=== PATIENT | female | born 1960 | race American Indian/Alaskan Native ===

== ENCOUNTER 2016-06-16 15:04 | Emergency (ER) | payer SELFPAY ==
[2016-06-16 15:24] VITALS: BP 155/89
[2016-06-16] MEDS ORDERED: MOTRIN PO ONE (17:30)
--- NOTE | 2016-06-16 17:48 | Emergency Department Report ---
HPI - General Chief Complaint: Upper Respiratory Infection - HPI HPI: 55-year-old -[place] female with a past medical history of hypertension comes in for complaint of flulike symptoms for the last 3 days. Patient reports she is taking [id number] medication without much relief. She admits to sweats abdominal pain from coughing so much cough and body aches. She is currently on lisinopril/hydrochlorothiazide as well as amlodipine 10 mg. She has no known allergies ED Past Medical Hx - Past Medical History Previous Medical History?: Yes Hx Hypertension: Yes - Surgical History Past Surgical History?: Yes Additional Surgical History: Tubaligation - Social History Smoking Status: Current Every Day Smoker Substance Use Type: Alcohol, Non Opiate Pain - Medications Home Medications: Home Medications Medication Instructions Recorded Confirmed Last Taken Type methOCARBAMOL [Robaxin TAB] 500 mg PO BID #10 tab 03/07/15 Unknown Rx traMADol [Ultram] 50 mg PO Q6HR PRN #14 tablet 03/07/15 Unknown Rx Cetirizine HCl [ZyrTEC] 10 mg PO QDAY #30 capsule 06/16/16 Unknown Rx Fluticasone [Flonase] 1 spray NS QDAY #1 bottle 06/16/16 Unknown Rx Ibuprofen [Motrin 800 MG tab] 800 mg PO Q8HR PRN #30 tablet 06/16/16 Unknown Rx ED Review of Systems ROS: Stated complaint: FLU SX /BODY ACHES Other details as noted in HPI Constitutional: denies: chills, fever ENT: ear pain, throat pain, congestion (nasal and chest congestion) Respiratory: cough Endocrine: excessive sweating Gastrointestinal: denies: abdominal pain, nausea, diarrhea Physical Exam - Physical Exam Vital Signs: Vital Signs 06/16/16 15:20 Temperature 99 F Pulse Rate 96 H Respiratory 20 Rate Blood Pressure 155/89 O2 Sat by Pulse 100 Oximetry Physical Exam: GENERAL: Alert and oriented x3, no apparent distress, Normal Gait, atraumatic. HEAD: Head is normocephalic and a-traumatic. EYES: Extra ocular muscles are intact. Pupils are equal, round, and reactive to light and accommodation. EARS: symetrical, atraumatic, non tender, ear canal clear and moderate cerumen, tympanic membrance non inflamed. gross auditory nml bilaterally. NOSE: Nose symetrical, Nontender,Nares appeared normal. Exudate noticed in the nares MOUTH:Mouth is well hydrated and without lesions. Tonsils nonerythematous or swollen, Uvula midline, Tongue not elevated. Mucous membranes are moist. Posterior pharynx clear, no exudate or lesions. Patent airways. NECK: Supple. Non edematous, No carotid bruits. No lymphadenopathy or thyromegaly. LUNGS: Symetrical with respiration, No wheezing, no rales or crackles, CTAB. HEART: S1, S2 present, regular rate and rhythm without murmur, no rubs, no gallops. NEUROLOGIC: No focal Deficit, Cranial nerves II through XII are grossly intact. No loss of sensation, No facial droop, PSYCHIATRIC: Mood is congruent with affect, SKIN: Warm and dry, No lesions, No ulceration or induration present ED Course Vital Signs 06/16/16 15:20 Temperature 99 F Pulse Rate 96 H Respiratory 20 Rate Blood Pressure 155/89 O2 Sat by Pulse 100 Oximetry ED Medical Decision Making - Medical Decision Making Patient's been evaluated by this provider fast track influenza test is sent out Tylenol for pain. Critical care attestation.: If time is entered above; I have spent that time in minutes in the direct care of this critically ill patient, excluding procedure time. ED Disposition Clinical Impression: Upper respiratory symptom Disposition: DISCHARGED TO HOME OR SELFCARE Is pt being admited?: No Does the pt Need Aspirin: No Condition: Stable Instructions: Upper Respiratory Infection (ED), Cold Symptoms (ED) Additional Instructions: Your flu test was negative. Please take the ibuprofen as prescribed. Take the Zyrtec as prescribed and use of Flonase as prescribed. If symptoms does not improve or get worse please follow up with her primary care doctor Prescriptions: Cetirizine HCl [ZyrTEC] 10 mg PO QDAY #30 capsule Fluticasone [Flonase] 1 spray NS QDAY #1 bottle Ibuprofen [Motrin 800 MG tab] 800 mg PO Q8HR PRN #30 tablet PRN Reason: Pain Referrals: PRIMARY CARE,MD [Primary Care Provider] - 3-5 Days Forms: Work/School Release Form(ED)
== END 2016-06-16 18:29 | disposition home or self-care (01) ==
LOC: ED 15:04
DX: R05 Cough (principal); R10.9 Unspecified abdominal pain; R61 Generalized hyperhidrosis; R09.81 Nasal congestion; I10 Essential (primary) hypertension; F17.200 Nicotine dependence, unspecified, uncomplicated; Z98.51 Tubal ligation status; Z79.899 Other long term (current) drug therapy
CPT/HCPCS: 87400; 99282

== ENCOUNTER 2016-12-29 13:56 | Emergency (ER) | payer SELFPAY ==
--- NOTE | 2016-12-29 14:08 | Emergency Department Report ---
Stated Complaint: HEADACHE AND SWEATING Time Seen by Provider: 12/29/16 14:06 - HPI History of Present Illness: PT c/o L thumb pain x 1 week. PT states all of her fingers hurt and burn. PT tearful. PT states she was told by friend that she had a stroke. - ROS Review of Systems: + headache + arthragia - Exam Physical Exam: PT is alert no focal weakness normal finger to nose gcs 15 PT tearful MSE screening note: Focused history and physical exam performed. Due to findings the following was ordered: labs, xr ED Disposition for MSE Condition: Stable
[2016-12-29 14:09] VITALS: BP 204/90
[2016-12-29 14:28] LABS: Basophils % (Auto) 0.9 % (0.0-1.8); Eosinophils % (Auto) 0.6 % (0.0-4.3); Hematocrit 43.9 % (30.3-42.9); Mean Corpuscular HGB Conc 32 % (30-34); Mean Corpuscular Volume 76 fl (79-97); Platelet Count 206 K/mm3 (140-440)
[2016-12-29 14:32] LABS: Mean Corpuscular Hemoglobin 24 pg (28-32)
[2016-12-29 14:40] LABS: Anion Gap 19 mmol/L; Blood Urea Nitrogen 10 mg/dL (7-17); Calcium 9.4 mg/dL (8.4-10.2); Carbon Dioxide 24 mmol/L (22-30); Chloride 100.5 mmol/L (98-107); Glucose 84 mg/dL (65-100); Potassium 4.1 mmol/L (3.6-5.0); Sodium 139 mmol/L (137-145)
--- NOTE | 2016-12-29 14:49 | XRay Report ---
LEFT HAND, 3 views: History: Pain. The bony architecture is intact. Bony alignment is normal. No soft tissue abnormalities are seen. The joint spaces appear preserved. IMPRESSION: Unremarkable left hand.
--- NOTE | 2016-12-29 18:46 | Emergency Department Report ---
ED General Adult HPI - General Chief complaint: Extremity Injury, Upper Stated complaint: HEADACHE AND SWEATING Time Seen by Provider: 12/29/16 14:06 Source: patient Mode of arrival: Ambulatory Limitations: No Limitations - History of Present Illness Initial comments: 56 years old female coming today with chief complaint of sweating all over pain in her hands being alone for 7 days on and off her pain is mainly in the left thumb now. Patient denied any weakness numbness or tingling sensation. - Related Data Previous Rx's Medication Instructions Recorded Last Taken Type methOCARBAMOL [Robaxin TAB] 500 mg PO BID #10 tab 03/07/15 Unknown Rx traMADol [Ultram] 50 mg PO Q6HR PRN #14 tablet 03/07/15 Unknown Rx Cetirizine HCl [ZyrTEC] 10 mg PO QDAY #30 capsule 06/16/16 Unknown Rx Fluticasone [Flonase] 1 spray NS QDAY #1 bottle 06/16/16 Unknown Rx Ibuprofen [Motrin 800 MG tab] 800 mg PO Q8HR PRN #30 tablet 06/16/16 Unknown Rx Naproxen [Naprosyn] 500 mg PO BID #14 tablet 12/29/16 Unknown Rx Allergies Allergy/AdvReac Type Severity Reaction Status Date / Time No Known Allergies Allergy Unverified 06/16/16 15:19 ED Review of Systems ROS: Stated complaint: HEADACHE AND SWEATING Other details as noted in HPI Comment: All other systems reviewed and negative Constitutional: chills, fever ENT: throat pain, congestion Respiratory: denies: cough Cardiovascular: denies: chest pain Gastrointestinal: denies: nausea, vomiting ED Past Medical Hx - Past Medical History Previous Medical History?: Yes Hx Hypertension: Yes - Surgical History Past Surgical History?: Yes Additional Surgical History: Tubaligation - Social History Smoking Status: Current Every Day Smoker Substance Use Type: None - Medications Home Medications: Home Medications Medication Instructions Recorded Confirmed Last Taken Type methOCARBAMOL [Robaxin TAB] 500 mg PO BID #10 tab 03/07/15 Unknown Rx traMADol [Ultram] 50 mg PO Q6HR PRN #14 tablet 03/07/15 Unknown Rx Cetirizine HCl [ZyrTEC] 10 mg PO QDAY #30 capsule 06/16/16 Unknown Rx Fluticasone [Flonase] 1 spray NS QDAY #1 bottle 06/16/16 Unknown Rx Ibuprofen [Motrin 800 MG tab] 800 mg PO Q8HR PRN #30 tablet 06/16/16 Unknown Rx Naproxen [Naprosyn] 500 mg PO BID #14 tablet 12/29/16 Unknown Rx ED Physical Exam - General Limitations: No Limitations General appearance: alert, in no apparent distress - Head Head exam: Present: atraumatic - Eye Eye exam: Present: normal appearance - Neck Neck exam: Present: normal inspection. Absent: tenderness, meningismus, full ROM, lymphadenopathy - Respiratory Respiratory exam: Present: normal lung sounds bilaterally. Absent: respiratory distress, wheezes, rales - Cardiovascular Cardiovascular Exam: Present: regular rate, normal rhythm, normal heart sounds - Extremities Exam Extremities exam: Present: other (bilateral hands exam are normal) - Back Exam Back exam: Present: normal inspection - Neurological Exam Neurological exam: Present: alert, oriented X3, CN II-XII intact - Skin Skin exam: Present: warm, intact ED Course Vital Signs 12/29/16 14:06 Temperature 98.2 F Pulse Rate 77 Respiratory 16 Rate Blood Pressure 204/90 O2 Sat by Pulse 100 Oximetry ED Medical Decision Making - Lab Data Result diagrams: 12/29/16 14:13 12/29/16 14:13 Critical care attestation.: If time is entered above; I have spent that time in minutes in the direct care of this critically ill patient, excluding procedure time. ED Disposition Clinical Impression: Generalized pain, Arthritis Disposition: DC-01 TO HOME OR SELFCARE Is pt being admited?: No Condition: Stable Instructions: Osteoarthritis (ED) Referrals: PRIMARY CARE, [Primary Care Provider] - 3-5 Days
== END 2016-12-29 19:11 | disposition home or self-care (01) ==
LOC: ED 13:56
DX: M19.90 Unspecified osteoarthritis, unspecified site (principal); R52 Pain, unspecified; I10 Essential (primary) hypertension; F17.200 Nicotine dependence, unspecified, uncomplicated
CPT/HCPCS: 36415; 80048; 85025; 99283

== ENCOUNTER 2017-09-12 03:38 | Emergency (ER) | payer SELFPAY ==
[2017-09-12 04:36] LABS: Basophils # (Auto) 0.1 K/mm3 (0.0-0.1); Basophils % (Auto) 0.9 % (0.0-1.8); Eosinophils # (Auto) 0.2 K/mm3 (0.0-0.4); Lymphocytes # (Auto) 3.6 K/mm3 (1.2-5.4); Lymphocytes % (Auto) 41.4 % (13.4-35.0); Mean Corpuscular HGB Conc 33 % (30-34); Mean Corpuscular Volume 75 fl (79-97); Monocytes # (Auto) 0.6 K/mm3 (0.0-0.8); Monocytes % (Auto) 6.7 % (0.0-7.3); Platelet Count 238 K/mm3 (140-440); Red Cell Distribution Width 15.5 % (13.2-15.2)
[2017-09-12 04:38] LABS: Mean Corpuscular Hemoglobin 25 pg (28-32)
[2017-09-12 04:52] LABS: BUN/Creatinine Ratio 17; Blood Urea Nitrogen 15 mg/dL (7-17); Calcium 9.9 mg/dL (8.4-10.2); Hemolysis Index 10
[2017-09-12 05:54] LABS: Bilirubin,Urine NEG (Negative); Blood,Urine NEG (Negative); Color,Urine Yellow (Yellow); Mucus,Urine FEW /HPF; Protein,Urine <15 mg/dL mg/dL (Negative)
[2017-09-12 06:01] LABS: Amphetamine Screen,Urine PRESUMPTIVE NEGATIVE; Benzodiazepines Screen,Urine PRESUMPTIVE NEGATIVE; Cocaine Screen,Urine PRESUMPTIVE NEGATIVE; Methadone Screen,Urine PRESUMPTIVE NEGATIVE; Opiate Screen,Urine PRESUMPTIVE NEGATIVE
[2017-09-12 06:15] LABS: Cannabinoid Screen,Urine PRESUMPTIVE POSITIVE
[2017-09-12] MEDS ORDERED: TYLENOL PO PRN (07:07)
[2017-09-12] MEDS ORDERED: ZOFRAN ODT PO PRN (07:07)
--- NOTE | 2017-09-12 07:07 | Emergency Department Report ---
ED Psych HPI - General Chief Complaint: Psych Stated Complaint: NH Time Seen by Provider: 09/12/17 06:57 Source: patient, RN notes reviewed Mode of arrival: Ambulatory Limitations: No Limitations - History of Present Illness Initial Comments: This is a 57-year-old female who presents to the ER with a complaint of suicidality. She wants to shoot herself. Her symptoms are constant. They're painless. She cannot describe exacerbating or relieving factors to me. She endorses multiple life stressors. To me, she denies headache, neck pain, chest pain, abdominal pain, shortness of breath, urinary symptoms. She denies intentional overdose. She cannot contract for safety. She denies hallucinations to this provider. She complains of chronic muscular arthritic pain in her bilateral ankles which is achy, intermittent, does not radiate anywhere. MD Complaint: suicidal ideation, feels depressed -: Gradual Associated Psychiatric Symptoms: suicidal ideation Quality: constant Improves With: other (per hpi) Worsens With: other (per hpi) Context: significant life stressor, other (per hpi) Associated Symptoms: denies other symptoms. denies: confusion, headache, shortness of breath, nausea, vomiting, syncope, insomnia If Self Harm: admits thoughts of, has plan - Related Data Home Medications Medication Instructions Recorded Confirmed Last Taken Amlodipine Besylate [Norvasc] 10 mg PO DAILY 09/12/17 09/12/17 Unknown Lisinopril [Prinivil] 10 mg PO DAILY 09/12/17 09/12/17 Unknown Allergies Allergy/AdvReac Type Severity Reaction Status Date / Time No Known Allergies Allergy Unverified 06/16/16 15:19 ED Review of Systems ROS: Stated complaint: NH Other details as noted in HPI Comment: All other systems reviewed and negative ED Past Medical Hx - Past Medical History Previous Medical History?: Yes Hx Hypertension: Yes - Surgical History Past Surgical History?: Yes Additional Surgical History: Tubaligation - Social History Smoking Status: Current Every Day Smoker Substance Use Type: None - Medications Home Medications: Home Medications Medication Instructions Recorded Confirmed Last Taken Type Amlodipine Besylate [Norvasc] 10 mg PO DAILY 09/12/17 09/12/17 Unknown History Lisinopril [Prinivil] 10 mg PO DAILY 09/12/17 09/12/17 Unknown History ED Physical Exam - General Limitations: No Limitations General appearance: alert, in no apparent distress - Head Head exam: Present: atraumatic, normocephalic - Eye Eye exam: Present: normal appearance, EOMI. Absent: nystagmus - ENT ENT exam: Present: normal exam, normal orophraynx, mucous membranes moist, normal external ear exam - Neck Neck exam: Present: normal inspection, full ROM. Absent: tenderness, meningismus - Respiratory Respiratory exam: Present: normal lung sounds bilaterally. Absent: respiratory distress - Cardiovascular Cardiovascular Exam: Present: regular rate, normal rhythm, normal heart sounds. Absent: bradycardia, tachycardia, irregular rhythm, systolic murmur, diastolic murmur, rubs, gallop - GI/Abdominal GI/Abdominal exam: Present: soft, normal bowel sounds. Absent: distended, tenderness, guarding, rebound, rigid, pulsatile mass - Extremities Exam Extremities exam: Present: normal inspection, full ROM, normal capillary refill , other (the compartments are soft. There is no palpable cord. 2+ pulses noted in the upper, lower extremities, there is no redness, pus or streaking. The pelvis is stable. There is no long bony tenderness.). Absent: pedal edema , joint swelling, calf tenderness - Back Exam Back exam: Present: normal inspection, full ROM. Absent: tenderness, CVA tenderness (R), paraspinal tenderness, vertebral tenderness - Neurological Exam Neurological exam: Present: alert, oriented X3, CN II-XII intact, normal gait, other (Extraocular movements intact. Tongue midline. No facial droop. Facial sensation intact to light touch in the V1, V2, V3 distribution bilaterally. 5 and 5 strength in 4 extremities.. Sensation is intact to light touch in 4 extremities.). Absent: motor sensory deficit - Psychiatric Psychiatric exam: Present: suicidal ideation - Skin Skin exam: Present: warm, dry, intact, normal color. Absent: rash ED Course Vital Signs 09/12/17 09/12/17 09/12/17 03:56 05:46 06:07 Temperature 98.0 F 98.0 F Pulse Rate 89 77 Respiratory 20 20 20 Rate Blood Pressure 190/103 Blood Pressure 129/70 [Left] O2 Sat by Pulse 97 99 100 Oximetry ED Medical Decision Making - Lab Data Result diagrams: 09/12/17 04:14 09/12/17 04:14 Vital Signs 09/12/17 09/12/17 09/12/17 03:56 05:46 06:07 Temperature 98.0 F 98.0 F Pulse Rate 89 77 Respiratory 20 20 20 Rate Blood Pressure 190/103 Blood Pressure 129/70 [Left] O2 Sat by Pulse 97 99 100 Oximetry Lab Results 09/12/17 09/12/17 09/12/17 Range/Units 04:14 04:14 04:14 WBC (4.5-11.0) K/mm3 RBC (3.65-5.03) M/mm3 Hgb (10.1-14.3) gm/dl Hct (30.3-42.9) % MCV (79-97) fl MCH (28-32) pg MCHC (30-34) % RDW (13.2-15.2) % Plt Count (140-440) K/mm3 Lymph % (Auto) (13.4-35.0) % [place] % (Auto) (0.0-7.3) % Eos % (Auto) (0.0-4.3) % Baso % (Auto) (0.0-1.8) % Lymph # (1.2-5.4) K/mm3 [place] # (0.0-0.8) K/mm3 Eos # (0.0-0.4) K/mm3 Baso # (0.0-0.1) K/mm3 Seg Neutrophils % (40.0-70.0) % Seg Neutrophils # (1.8-7.7) K/mm3 Sodium 144 (137-145) mmol/L Potassium 3.7 (3.6-5.0) mmol/L Chloride 103.5 (98-107) mmol/L Carbon Dioxide 25 (22-30) mmol/L Anion Gap 19 mmol/L BUN 15 (7-17) mg/dL Creatinine 0.9 (0.7-1.2) mg/dL Estimated GFR > 60 ml/min BUN/Creatinine Ratio 17 % Glucose 113 H (65-100) mg/dL Calcium 9.9 (8.4-10.2) mg/dL Urine Color (Yellow) Urine Turbidity (Clear) Urine pH (5.0-7.0) Ur Specific [place] (1.003-1.030) Urine Protein (Negative) mg/dL Urine Glucose (UA) (Negative) mg/dL Urine Ketones (Negative) mg/dL Urine Blood (Negative) Urine Nitrite (Negative) Urine Bilirubin (Negative) Urine Urobilinogen (<2.0) mg/dL Ur Leukocyte Esterase (Negative) Urine WBC (Auto) (0.0-6.0) /HPF Urine RBC (Auto) (0.0-6.0) /HPF U Epithel Cells (Auto) (0-13.0) /HPF Urine Mucus /HPF Salicylates < 0.3 L (2.8-20.0) mg/dL Urine Opiates Screen Urine Methadone Screen Acetaminophen < 5.0 L (10.0-30.0) ug/mL Ur Barbiturates Screen Ur Phencyclidine Scrn Ur Amphetamines Screen U Benzodiazepines Scrn Urine Cocaine Screen U Marijuana (THC) Screen Drugs of Abuse Note Plasma/Serum Alcohol (0-0.07) % 09/12/17 09/12/17 09/12/17 Range/Units 04:14 04:14 04:32 WBC 8.6 (4.5-11.0) K/mm3 RBC 5.70 H (3.65-5.03) M/mm3 Hgb 14.0 (10.1-14.3) gm/dl Hct 43.0 H (30.3-42.9) % MCV 75 L (79-97) fl MCH 25 L (28-32) pg MCHC 33 (30-34) % RDW 15.5 H (13.2-15.2) % Plt Count 238 (140-440) K/mm3 Lymph % (Auto) 41.4 H (13.4-35.0) % [place] % (Auto) 6.7 (0.0-7.3) % Eos % (Auto) 2.0 (0.0-4.3) % Baso % (Auto) 0.9 (0.0-1.8) % Lymph # 3.6 (1.2-5.4) K/mm3 [place] # 0.6 (0.0-0.8) K/mm3 Eos # 0.2 (0.0-0.4) K/mm3 Baso # 0.1 (0.0-0.1) K/mm3 Seg Neutrophils % 49.0 (40.0-70.0) % Seg Neutrophils # 4.2 (1.8-7.7) K/mm3 Sodium (137-145) mmol/L Potassium (3.6-5.0) mmol/L Chloride (98-107) mmol/L Carbon Dioxide (22-30) mmol/L Anion Gap mmol/L BUN (7-17) mg/dL Creatinine (0.7-1.2) mg/dL Estimated GFR ml/min BUN/Creatinine Ratio % Glucose (65-100) mg/dL Calcium (8.4-10.2) mg/dL Urine Color Yellow (Yellow) Urine Turbidity Clear (Clear) Urine pH 7.0 (5.0-7.0) Ur Specific [place] 1.024 (1.003-1.030) Urine Protein <15 mg/dl (Negative) mg/dL Urine Glucose (UA) Neg (Negative) mg/dL Urine Ketones Neg (Negative) mg/dL Urine Blood Neg (Negative) Urine Nitrite Neg (Negative) Urine Bilirubin Neg (Negative) Urine Urobilinogen 2.0 (<2.0) mg/dL Ur Leukocyte Esterase Neg (Negative) Urine WBC (Auto) 1.0 (0.0-6.0) /HPF Urine RBC (Auto) 3.0 (0.0-6.0) /HPF U Epithel Cells (Auto) 3.0 (0-13.0) /HPF Urine Mucus Few /HPF Salicylates (2.8-20.0) mg/dL Urine Opiates Screen Urine Methadone Screen Acetaminophen (10.0-30.0) ug/mL Ur Barbiturates Screen Ur Phencyclidine Scrn Ur Amphetamines Screen U Benzodiazepines Scrn Urine Cocaine Screen U Marijuana (THC) Screen Drugs of Abuse Note Plasma/Serum Alcohol < 0.01 (0-0.07) % 09/12/17 Range/Units 04:55 WBC (4.5-11.0) K/mm3 RBC (3.65-5.03) M/mm3 Hgb (10.1-14.3) gm/dl Hct (30.3-42.9) % MCV (79-97) fl MCH (28-32) pg MCHC (30-34) % RDW (13.2-15.2) % Plt Count (140-440) K/mm3 Lymph % (Auto) (13.4-35.0) % [place] % (Auto) (0.0-7.3) % Eos % (Auto) (0.0-4.3) % Baso % (Auto) (0.0-1.8) % Lymph # (1.2-5.4) K/mm3 [place] # (0.0-0.8) K/mm3 Eos # (0.0-0.4) K/mm3 Baso # (0.0-0.1) K/mm3 Seg Neutrophils % (40.0-70.0) % Seg Neutrophils # (1.8-7.7) K/mm3 Sodium (137-145) mmol/L Potassium (3.6-5.0) mmol/L Chloride (98-107) mmol/L Carbon Dioxide (22-30) mmol/L Anion Gap mmol/L BUN (7-17) mg/dL Creatinine (0.7-1.2) mg/dL Estimated GFR ml/min BUN/Creatinine Ratio % Glucose (65-100) mg/dL Calcium (8.4-10.2) mg/dL Urine Color (Yellow) Urine Turbidity (Clear) Urine pH (5.0-7.0) Ur Specific [place] (1.003-1.030) Urine Protein (Negative) mg/dL Urine Glucose (UA) (Negative) mg/dL Urine Ketones (Negative) mg/dL Urine Blood (Negative) Urine Nitrite (Negative) Urine Bilirubin (Negative) Urine Urobilinogen (<2.0) mg/dL Ur Leukocyte Esterase (Negative) Urine WBC (Auto) (0.0-6.0) /HPF Urine RBC (Auto) (0.0-6.0) /HPF U Epithel Cells (Auto) (0-13.0) /HPF Urine Mucus /HPF Salicylates (2.8-20.0) mg/dL Urine Opiates Screen Presumptive negative Urine Methadone Screen Presumptive negative Acetaminophen (10.0-30.0) ug/mL Ur Barbiturates Screen Presumptive negative Ur Phencyclidine Scrn Presumptive negative Ur Amphetamines Screen Presumptive negative U Benzodiazepines Scrn Presumptive negative Urine Cocaine Screen Presumptive negative U Marijuana (THC) Screen Presumptive positive Drugs of Abuse Note Disclamer Plasma/Serum Alcohol (0-0.07) % - Medical Decision Making Differential diagnosis, including but not limited to: Mood disorder, suicidality , medical clearance for psychiatric placement, incidental elevated blood pressure Assessment and plan: 57-year-old female with suicidality. Serum toxicology screen is unremarkable, laboratory studies, physical exam unremarkable with the exception of single isolated value for high blood pressure. Patient does have a history of hypertension and takes 2 medications which we will continue. She requires no further workup or intervention for her elevated blood pressure, please reference the [employer] clinical policy on hypertension that is non-symptomatically. Patient is placed on a 1013. She is clinically sober, with a GCS of 15, with an NIH score of 0. She is medically suitable this time for psychiatric consultation, evaluation, and placement. At this point in time, there does not appear to be an immediate medical contraindication to psychiatric hospitalization. Critical care attestation.: If time is entered above; I have spent that time in minutes in the direct care of this critically ill patient, excluding procedure time. ED Disposition Clinical Impression: Mood disorder, Medical clearance for psychiatric admission Disposition: DC/TX-65 PSY HOSP/PSY UNIT Is pt being admited?: No Does the pt Need Aspirin: No Condition: Stable Referrals: PRIMARY CARE [Primary Care Provider] - 3-5 Days
[2017-09-12] MEDS: ZESTRIL PO SCH (11:30)
[2017-09-12] MEDS: NORVASC PO SCH (11:30)
[2017-09-13 08:12] VITALS: BP 134/81
[2017-09-13] MEDS: ZESTRIL PO SCH (10:59)
[2017-09-13] MEDS: NORVASC PO SCH (10:59)
--- NOTE | 2017-09-13 14:55 | Consultation ---
History of Present Illness - Reason for Consult Consult date: 09/13/17 Reason for consult: Mental Health Evaluation Requesting physician: STEVAN ALVES - Chief Complaint Chief complaint: "I miss spoke" - History of Present Psychiatric Illness 57-year-old AA female who presents to the ER with a complaint of suicidality. Today the patient is calm and cooperative during the assessment. She stated that she was very upset and stressed prior to her arrival to the hospital. She stated that she find out that her was texting another woman and became angry. She stated that they had been out at a alliance party and was drinking prior to to her findings. She stated that she was never suicidal when she arrived at the hospital. She stated that she wanted to speak with a therapist or a counselor reference the way she was feeling when she arrived to the ER. She stated that she did not mean to say that she would shot herself reference being suicidal. Per collateral information from her Kendrick Castro at [phone], he stated that his does not have an psy hx nor take psy medications. He denies a previous suicide attempt by the patient. He stated that his was upset when she arrived to the ER. He feels safe for his to return home once discharged. The patient denies SI/HI's and AHS's. She denies any past manic episodes. She acknowledged that she smokes marijuana and consume alcohol ( etoh) "sometimes." She asked for a referral for family therapy for herself and her . Medications and Allergies Allergies Allergy/AdvReac Type Severity Reaction Status Date / Time No Known Allergies Allergy Unverified 06/16/16 15:19 Home Medications Medication Instructions Recorded Confirmed Last Taken Type Amlodipine Besylate [Norvasc] 10 mg PO DAILY 09/12/17 09/12/17 Unknown History Lisinopril [Prinivil] 10 mg PO DAILY 09/12/17 09/12/17 Unknown History Active Meds: Active Medications Acetaminophen (Tylenol) 650 mg PO Q6HR PRN PRN Reason: Pain Amlodipine Besylate (Norvasc) 10 mg PO DAILY [facility] Last Admin: 09/13/17 10:59 Dose: 10 mg Lisinopril (Zestril) 10 mg PO DAILY [facility] Last Admin: 09/13/17 10:59 Dose: 10 mg Ondansetron HCl (Zofran Odt) 4 mg PO Q6HR PRN PRN Reason: Nausea Past psychiatric history - Past Medical History Past Medical History: hypertension Past Surgical History: Other (Tubaligation) - past Psychiatric treatment and history psychiatric treatment history: Denies a psy hx and a fam psy hx. - Social History Social history: lives with family Mental Status Exam - Vital signs Last Vital Signs Temp 98.1 F 09/13/17 08:11 Pulse 86 09/13/17 08:11 Resp 16 09/13/17 08:11 BP 134/81 09/13/17 08:11 Pulse Ox 100 09/13/17 08:11 - Exam Narrative exam: MSE: Appearance: calm, cooperative Behavior: regular eye contact Speech: regular rate and tone Mood: "well" Affect: congruent to mood Thought Process: linear Thought Content: denies SI/HI's and AVH's Motor Activity: lying in bed Cognition: A/O x 3 Insight: appropriate Judgment: appropriate Results Result Diagrams: 09/12/17 04:14 09/12/17 04:14 All other labs normal. Assessment and Plan Assessment and plan: Impression: Acute Stress Reaction. Cannabis Use DO. Today the patient is calm and cooperative during the assessment. The patient is no threat to self. DDx: R/O Substance Induced Mood DO, R/O Alcohol Use DO Recommendation/Plan: Rescind 1013. The patient given outpatient referral for family therapy for [facility].
--- NOTE | 2017-09-13 16:09 | Event Note ---
Date: 09/13/17 The patient's 1013 has been discontinued by the psychiatric team. She has no complaints at this time and would like to go. Her vital signs have been stable , and her medical exam is unremarkable. The patient will be discharged at this time. Patient is counseled to discontinue cannabis consumption. Vital Signs 09/12/17 09/12/17 09/12/17 03:56 05:46 06:07 Temperature 98.0 F 98.0 F Pulse Rate 89 77 Respiratory 20 20 20 Rate Blood Pressure 190/103 Blood Pressure 129/70 [Left] O2 Sat by Pulse 97 99 100 Oximetry 09/12/17 09/12/17 09/12/17 07:30 11:30 11:50 Temperature 97.9 F Pulse Rate 70 60 Respiratory 14 15 Rate Blood Pressure 195/80 Blood Pressure 150/88 [Left] O2 Sat by Pulse 98 96 Oximetry 09/12/17 09/13/17 22:46 08:11 Temperature 97.9 F 98.1 F Pulse Rate 54 L 86 Respiratory 16 16 Rate Blood Pressure Blood Pressure 158/72 134/81 [Left] O2 Sat by Pulse 100 100 Oximetry Lab Results 09/12/17 09/12/17 09/12/17 Range/Units 04:14 04:14 04:14 WBC (4.5-11.0) K/mm3 RBC (3.65-5.03) M/mm3 Hgb (10.1-14.3) gm/dl Hct (30.3-42.9) % MCV (79-97) fl MCH (28-32) pg MCHC (30-34) % RDW (13.2-15.2) % Plt Count (140-440) K/mm3 Lymph % (Auto) (13.4-35.0) % [place] % (Auto) (0.0-7.3) % Eos % (Auto) (0.0-4.3) % Baso % (Auto) (0.0-1.8) % Lymph # (1.2-5.4) K/mm3 [place] # (0.0-0.8) K/mm3 Eos # (0.0-0.4) K/mm3 Baso # (0.0-0.1) K/mm3 Seg Neutrophils % (40.0-70.0) % Seg Neutrophils # (1.8-7.7) K/mm3 Sodium 144 (137-145) mmol/L Potassium 3.7 (3.6-5.0) mmol/L Chloride 103.5 (98-107) mmol/L Carbon Dioxide 25 (22-30) mmol/L Anion Gap 19 mmol/L BUN 15 (7-17) mg/dL Creatinine 0.9 (0.7-1.2) mg/dL Estimated GFR > 60 ml/min BUN/Creatinine Ratio 17 % Glucose 113 H (65-100) mg/dL Calcium 9.9 (8.4-10.2) mg/dL Urine Color (Yellow) Urine Turbidity (Clear) Urine pH (5.0-7.0) Ur Specific Var[place] (1.003-1.030) Urine Protein (Negative) mg/dL Urine Glucose (UA) (Negative) mg/dL Urine Ketones (Negative) mg/dL Urine Blood (Negative) Urine Nitrite (Negative) Urine Bilirubin (Negative) Urine Urobilinogen (<2.0) mg/dL Ur Leukocyte Esterase (Negative) Urine WBC (Auto) (0.0-6.0) /HPF Urine RBC (Auto) (0.0-6.0) /HPF U Epithel Cells (Auto) (0-13.0) /HPF Urine Mucus /HPF Salicylates < 0.3 L (2.8-20.0) mg/dL Urine Opiates Screen Urine Methadone Screen Acetaminophen < 5.0 L (10.0-30.0) ug/mL Ur Barbiturates Screen Ur Phencyclidine Scrn Ur Amphetamines Screen U Benzodiazepines Scrn Urine Cocaine Screen U Marijuana (THC) Screen Drugs of Abuse Note Plasma/Serum Alcohol (0-0.07) % 09/12/17 09/12/17 09/12/17 Range/Units 04:14 04:14 04:32 WBC 8.6 (4.5-11.0) K/mm3 RBC 5.70 H (3.65-5.03) M/mm3 Hgb 14.0 (10.1-14.3) gm/dl Hct 43.0 H (30.3-42.9) % MCV 75 L (79-97) fl MCH 25 L (28-32) pg MCHC 33 (30-34) % RDW 15.5 H (13.2-15.2) % Plt Count 238 (140-440) K/mm3 Lymph % (Auto) 41.4 H (13.4-35.0) % [place] % (Auto) 6.7 (0.0-7.3) % Eos % (Auto) 2.0 (0.0-4.3) % Baso % (Auto) 0.9 (0.0-1.8) % Lymph # 3.6 (1.2-5.4) K/mm3 [place] # 0.6 (0.0-0.8) K/mm3 Eos # 0.2 (0.0-0.4) K/mm3 Baso # 0.1 (0.0-0.1) K/mm3 Seg Neutrophils % 49.0 (40.0-70.0) % Seg Neutrophils # 4.2 (1.8-7.7) K/mm3 Sodium (137-145) mmol/L Potassium (3.6-5.0) mmol/L Chloride (98-107) mmol/L Carbon Dioxide (22-30) mmol/L Anion Gap mmol/L BUN (7-17) mg/dL Creatinine (0.7-1.2) mg/dL Estimated GFR ml/min BUN/Creatinine Ratio % Glucose (65-100) mg/dL Calcium (8.4-10.2) mg/dL Urine Color Yellow (Yellow) Urine Turbidity Clear (Clear) Urine pH 7.0 (5.0-7.0) Ur Specific Varney 1.024 (1.003-1.030) Urine Protein <15 mg/dl (Negative) mg/dL Urine Glucose (UA) Neg (Negative) mg/dL Urine Ketones Neg (Negative) mg/dL Urine Blood Neg (Negative) Urine Nitrite Neg (Negative) Urine Bilirubin Neg (Negative) Urine Urobilinogen 2.0 (<2.0) mg/dL Ur Leukocyte Esterase Neg (Negative) Urine WBC (Auto) 1.0 (0.0-6.0) /HPF Urine RBC (Auto) 3.0 (0.0-6.0) /HPF U Epithel Cells (Auto) 3.0 (0-13.0) /HPF Urine Mucus Few /HPF Salicylates (2.8-20.0) mg/dL Urine Opiates Screen Urine Methadone Screen Acetaminophen (10.0-30.0) ug/mL Ur Barbiturates Screen Ur Phencyclidine Scrn Ur Amphetamines Screen U Benzodiazepines Scrn Urine Cocaine Screen U Marijuana (THC) Screen Drugs of Abuse Note Plasma/Serum Alcohol < 0.01 (0-0.07) % 09/12/17 Range/Units 04:55 WBC (4.5-11.0) K/mm3 RBC (3.65-5.03) M/mm3 Hgb (10.1-14.3) gm/dl Hct (30.3-42.9) % MCV (79-97) fl MCH (28-32) pg MCHC (30-34) % RDW (13.2-15.2) % Plt Count (140-440) K/mm3 Lymph % (Auto) (13.4-35.0) % [place] % (Auto) (0.0-7.3) % Eos % (Auto) (0.0-4.3) % Baso % (Auto) (0.0-1.8) % Lymph # (1.2-5.4) K/mm3 [place] # (0.0-0.8) K/mm3 Eos # (0.0-0.4) K/mm3 Baso # (0.0-0.1) K/mm3 Seg Neutrophils % (40.0-70.0) % Seg Neutrophils # (1.8-7.7) K/mm3 Sodium (137-145) mmol/L Potassium (3.6-5.0) mmol/L Chloride (98-107) mmol/L Carbon Dioxide (22-30) mmol/L Anion Gap mmol/L BUN (7-17) mg/dL Creatinine (0.7-1.2) mg/dL Estimated GFR ml/min BUN/Creatinine Ratio % Glucose (65-100) mg/dL Calcium (8.4-10.2) mg/dL Urine Color (Yellow) Urine Turbidity (Clear) Urine pH (5.0-7.0) Ur Specific [place] (1.003-1.030) Urine Protein (Negative) mg/dL Urine Glucose (UA) (Negative) mg/dL Urine Ketones (Negative) mg/dL Urine Blood (Negative) Urine Nitrite (Negative) Urine Bilirubin (Negative) Urine Urobilinogen (<2.0) mg/dL Ur Leukocyte Esterase (Negative) Urine WBC (Auto) (0.0-6.0) /HPF Urine RBC (Auto) (0.0-6.0) /HPF U Epithel Cells (Auto) (0-13.0) /HPF Urine Mucus /HPF Salicylates (2.8-20.0) mg/dL Urine Opiates Screen Presumptive negative Urine Methadone Screen Presumptive negative Acetaminophen (10.0-30.0) ug/mL Ur Barbiturates Screen Presumptive negative Ur Phencyclidine Scrn Presumptive negative Ur Amphetamines Screen Presumptive negative U Benzodiazepines Scrn Presumptive negative Urine Cocaine Screen Presumptive negative U Marijuana (THC) Screen Presumptive positive Drugs of Abuse Note Disclamer Plasma/Serum Alcohol (0-0.07) %
== END 2017-09-13 17:04 | disposition home or self-care (01) ==
LOC: ED 03:38 → EEVIPCON 03:38 → ED 09-13 17:04
DX: F43.0 Acute stress reaction (principal); F32.9 Major depressive disorder, single episode, unspecified; I10 Essential (primary) hypertension; F17.200 Nicotine dependence, unspecified, uncomplicated; F12.10 Cannabis abuse, uncomplicated; F10.10 Alcohol abuse, uncomplicated; Z98.51 Tubal ligation status
CPT/HCPCS: 36415; 80048; 80307; 81001; 85025; 99284; G0480; 80320

== ENCOUNTER 2018-09-05 16:52 | Emergency (ER) | payer SELFPAY ==
--- NOTE | 2018-09-05 17:28 | Emergency Department Report ---
Blank Doc - Documentation Documentation: This is a 57-year-old female that presents with lower back pain. This initial assessment/diagnostic orders/clinical plan/treatment(s) is/are subject to change based on patient's health status, clinical progression and re- assessment by fellow clinical providers in the ED. Further treatment and workup at subsequent clinical providers discretion. Patient/guardians urged not to elope from the ED as their condition may be serious if not clinically assessed and managed. Initial orders include: 1- Patient sent to [facility] for further evaluation and treatment 2- UA
[2018-09-05 18:06] LABS: Bilirubin,Urine NEG (Negative); Blood,Urine SM (Negative); Color,Urine Yellow (Yellow); Mucus,Urine FEW /HPF; Protein,Urine <15 mg/dL mg/dL (Negative); Urobilinogen,Urine < 2.0 mg/dL (<2.0); WBC,Urine < 1.0 /HPF (0.0-6.0)
[2018-09-05] MEDS ORDERED: DECADRON IV ONE (19:27)
[2018-09-05] MEDS ORDERED: NACL 0.9% 1000 ML 1,000 ML IV ONE (19:27)
[2018-09-05] MEDS ORDERED: TORADOL IV ONE (19:27)
[2018-09-05] MEDS ORDERED: ZOFRAN IV ONE (19:27)
[2018-09-05 20:00] LABS: Basophils # (Auto) 0.1 K/mm3 (0.0-0.1); Basophils % (Auto) 0.8 % (0.0-1.8); Eosinophils # (Auto) 0.1 K/mm3 (0.0-0.4); Eosinophils % (Auto) 1.3 % (0.0-4.3); Hematocrit 43.9 % (30.3-42.9); Hemoglobin 14.2 gm/dl (10.1-14.3); Lymphocytes # (Auto) 3.8 K/mm3 (1.2-5.4); Lymphocytes % (Auto) 48.4 % (13.4-35.0); Mean Corpuscular HGB Conc 32 % (30-34); Mean Corpuscular Volume 77 fl (79-97); Monocytes # (Auto) 0.4 K/mm3 (0.0-0.8); Monocytes % (Auto) 5.7 % (0.0-7.3); Platelet Count 246 K/mm3 (140-440); Red Blood Count 5.68 M/mm3 (3.65-5.03); Red Cell Distribution Width 16.3 % (13.2-15.2)
[2018-09-05 20:08] LABS: Alanine Aminotransferase 11 units/L (7-56); BUN/Creatinine Ratio 19; Blood Urea Nitrogen 15 mg/dL (7-17); Calcium 9.6 mg/dL (8.4-10.2); Hemolysis Index 9
--- NOTE | 2018-09-05 20:59 | Cat Scan Report ---
PROCEDURE: CT ABDOMEN PELVIS WO CON HISTORY: flank pain FINDINGS: Unenhanced CT of the abdomen and pelvis was performed. There is cardiomegaly. There is right middle lobe and lingular linear atelectasis. ABDOMEN: The unenhanced liver, spleen, pancreas, gallbladder are unremarkable. There is a low-density left adrenal nodule, 1 cm consistent with adenoma. The right adrenal is unrema rkable. There is no renal or ureteral calculus. There is no small or large bowel obstruction. There is aortic atherosclerotic change without aneurysm al dilation of the aorta. Pelvis: There is a normal appendix. There is no evidence of diverticulitis. There is no adnexal mass. The uri nary bladder is within normal limits. IMPRESSION: Cardiomegaly ABDOMEN: No renal or ureteral calculus Pelvis: Normal appendix This document is electronically signed by Marshall Longoria MD., September 05 2018 09:58:04 PM ET
--- NOTE | 2018-09-05 21:07 | Emergency Department Report ---
ED Back Pain/Injury HPI - General Chief Complaint: Back Pain/Injury Stated Complaint: LOWER BACK PAIN Time Seen by Provider: 09/05/18 17:27 Source: patient Limitations: No Limitations - History of Present Illness Initial Comments: Patient is a 57-year-old -Serbian female with a history of hypertension who presents to the ED with complaint of acute onset persistent nontraumatic low back pain that radiates to the lower abdomen diffusely for the last 3 days. Patient also complains of nausea, vomiting and diarrhea. Patient denies fever, chills, dysuria, urinary frequency and urgency, vaginal bleeding, dizziness, chest pain, shortness of breath, history of lifting, numbness and tingling of lower extremities bilaterally or vaginal discharge. MD Complaint: back pain -: Sudden, days(s) (3) Similar Symptoms Previously: No Place: home Radiation: abdomen (lower abdomen diffusely) Severity: severe Severity scale (0 -10): 7 Quality: sharp, aching Consistency: constant Improves With: none Worsens With: none Context: other (spontaneous) Associated Symptoms: denies other symptoms, abdominal pain, malaise, nausea/vomiting. denies: confusion, weakness, difficulty walking, cough, difficulty urinating, diaphoresis, fever/chills, constipation, headaches, loss of appetite, seizure, syncope Treatments Prior to Arrival: NSAIDS - Related Data Home Medications Medication Instructions Recorded Confirmed Last Taken Amlodipine Besylate [Norvasc] 10 mg PO DAILY 09/12/17 09/12/17 Unknown Lisinopril [Prinivil] 10 mg PO DAILY 09/12/17 09/12/17 Unknown Previous Rx's Medication Instructions Recorded Last Taken Type Baclofen 20 mg PO Q8H PRN #21 tablet 09/05/18 Unknown Rx Ibuprofen [Motrin] 800 mg PO Q8HR PRN #20 tablet 09/05/18 Unknown Rx Prednisone [predniSONE 10 mg 10 mg PO .TAPER #21 tab.ds.pk 09/05/18 Unknown Rx (6-Day Pack, 21 Tabs)] traMADol [Ultram] 50 mg PO Q6HR PRN #15 tablet 09/05/18 Unknown Rx Allergies Allergy/AdvReac Type Severity Reaction Status Date / Time No Known Allergies Allergy Unverified 06/16/16 15:19 ED Review of Systems ROS: Stated complaint: LOWER BACK PAIN Other details as noted in HPI Comment: All other systems reviewed and negative Constitutional: no symptoms reported, see HPI. denies: chills, diaphoresis, fever, malaise Eyes: as per HPI. denies: eye pain, eye discharge, vision change ENT: as per HPI. denies: ear pain, throat pain, dental pain Respiratory: no symptoms reported, see HPI. denies: cough, orthopnea, shortness of breath, SOB with exertion, SOB at rest Cardiovascular: as per HPI. denies: chest pain, palpitations, dyspnea on exertion, edema, syncope, paroxysmal nocturnal dyspnea Endocrine: no symptoms reported, see HPI. denies: excessive sweating, flushing, intolerance to cold, intolerance to heat, increased hunger, increased thirst, increased urine Gastrointestinal: as per HPI, abdominal pain, nausea, vomiting, diarrhea. denies: constipation, hematemesis, hematochezia Genitourinary: as per HPI. denies: urgency, dysuria, frequency, hematuria, discharge, abnormal menses, dyspareunia Musculoskeletal: as per HPI, back pain, arthralgia, myalgia. denies: joint swelling Skin: as per HPI. denies: rash, lesions, change in color, change in hair/nails Neurological: as per HPI. denies: headache, weakness, numbness, paresthesias, abnormal gait, vertigo Psychiatric: as per HPI Hematological/Lymphatic: as per HPI ED Past Medical Hx - Past Medical History Previous Medical History?: Yes Hx Hypertension: Yes - Surgical History Past Surgical History?: Yes Additional Surgical History: Tubal ligation - Social History Smoking Status: Current Every Day Smoker Substance Use Type: None - Medications Home Medications: Home Medications Medication Instructions Recorded Confirmed Last Taken Type Amlodipine Besylate [Norvasc] 10 mg PO DAILY 09/12/17 09/12/17 Unknown History Lisinopril [Prinivil] 10 mg PO DAILY 09/12/17 09/12/17 Unknown History Baclofen 20 mg PO Q8H PRN #21 tablet 09/05/18 Unknown Rx Ibuprofen [Motrin] 800 mg PO Q8HR PRN #20 tablet 09/05/18 Unknown Rx Prednisone [predniSONE 10 mg 10 mg PO .TAPER #21 tab.ds.pk 09/05/18 Unknown Rx (6-Day Pack, 21 Tabs)] traMADol [Ultram] 50 mg PO Q6HR PRN #15 tablet 09/05/18 Unknown Rx ED Physical Exam - General Limitations: No Limitations General appearance: alert, in no apparent distress - Head Head exam: Present: atraumatic, normocephalic, normal inspection - Eye Eye exam: Present: normal appearance, PERRL, EOMI. Absent: scleral icterus, conjunctival injection, nystagmus Pupils: Present: normal accommodation - ENT ENT exam: Present: normal exam, normal orophraynx, mucous membranes moist, TM's normal bilaterally, normal external ear exam - Neck Neck exam: Present: normal inspection, full ROM. Absent: tenderness, meningismus, lymphadenopathy - Respiratory Respiratory exam: Present: normal lung sounds bilaterally. Absent: respiratory distress, wheezes, rales, rhonchi, accessory muscle use, decreased breath sounds, prolonged expiratory - Cardiovascular Cardiovascular Exam: Present: regular rate, normal rhythm, normal heart sounds - GI/Abdominal GI/Abdominal exam: Present: soft, tenderness (palpable suprapubic tenderness, no guarding or rebound), normal bowel sounds. Absent: guarding, rebound, hyperactive bowel sounds, hypoactive bowel sounds, organomegaly - Rectal Rectal exam: Present: deferred - Extremities Exam Extremities exam: Present: normal inspection, full ROM, normal capillary refill - Back Exam Back exam: Present: normal inspection, tenderness (Palpable lumbosacral paraspinal musculoskeletal tenderness), muscle spasm, paraspinal tenderness - Neurological Exam Neurological exam: Present: alert, oriented X3, CN II-XII intact, normal gait, reflexes normal - Psychiatric Psychiatric exam: Present: normal affect - Skin Skin exam: Present: warm, dry, intact, normal color ED Course Vital Signs 09/05/18 09/05/18 17:27 19:45 Temperature 98 F Pulse Rate 68 Respiratory 18 16 Rate Blood Pressure 177/80 O2 Sat by Pulse 99 Oximetry - Reevaluation(s) Reevaluation #1: 09/05/18 21:07 Patient is alert and oriented 3 and is not in any distress but hypertensive in triage. Labs are drawn including urinalysis. Lab test results were reviewed and are unremarkable including urinalysis. Abdomen pelvis CT scan without co ntrast was ordered. Patient was treated for pain and also nausea and vomiting. On reevaluation, patient's pain is well controlled with medications. Abdomen pelvis CT scan without contrast shows no acute abdominal pathology including kidney stones or diverticulitis, and a normal appendix. Patient was discharged home on pain medications, and advised to follow-up with her primary care physician in 3-5 days for reevaluation. Patient also advised to return to the ED immediately if symptoms get worse. ED Medical Decision Making - Lab Data Result diagrams: 09/05/18 19:35 09/05/18 19:35 - Radiology Data No acute abdominal pathology - Medical Decision Making Patient is alert and oriented 3 and is not in any distress but hypertensive in triage. Labs are drawn including urinalysis. Lab test results were reviewed and are unremarkable including urinalysis. Abdomen pelvis CT scan without contrast was ordered. Patient was treated for pain and also nausea and vomiting . On reevaluation, patient's pain is well controlled with medications. Abdomen pelvis CT scan without contrast shows no acute abdominal pathology including kidney stones or diverticulitis, and a normal appendix. Patient was discharged home on pain medications, and advised to follow-up with her primary care physician in 3-5 days for reevaluation. Patient also advised to return to the ED immediately if symptoms get worse. - Differential Diagnosis abdominal pain, muscle spasm of lower back Critical care attestation.: If time is entered above; I have spent that time in minutes in the direct care of this critically ill patient, excluding procedure time. ED Disposition Clinical Impression: Spasm of muscle of lower back Abdominal pain Qualifiers: Abdominal location: lower abdomen, unspecified Qualified Code(s): R10.30 - Lower abdominal pain, unspecified Acute low back pain Qualifiers: Back pain laterality: unspecified Sciatica presence: without sciatica Qualified Code(s): M54.5 - Low back pain Disposition: TO HOME OR SELFCARE Is pt being admited?: No Does the pt Need Aspirin: No Condition: Stable Instructions: Abdominal Pain (ED), Muscle Spasm (ED), Low Back Strain (ED) Additional Instructions: Take medications with food, drink plenty of fluids and follow up with your primary care physician as advised. Return to the ED immediately if symptoms get worse. Prescriptions: Baclofen 20 mg PO Q8H PRN #21 tablet PRN Reason: Spasms Ibuprofen [Motrin] 800 mg PO Q8HR PRN #20 tablet PRN Reason: Pain , Severe (7-10) Prednisone [predniSONE 10 mg (6-Day Pack, 21 Tabs)] 10 mg PO .TAPER #21 tab.ds.pk traMADol [Ultram] 50 mg PO Q6HR PRN #15 tablet PRN Reason: Pain Referrals: CALEB GAINES MD [Primary Care Provider] - 3-5 Days Time of Disposition: 21:11 Print Language: DIVEHI
[2018-09-05 21:25] VITALS: BP 160/70
== END 2018-09-05 21:30 | disposition home or self-care (01) ==
LOC: ED 16:52
DX: M62.830 Muscle spasm of back (principal); R10.9 Unspecified abdominal pain; R11.2 Nausea with vomiting, unspecified; R19.7 Diarrhea, unspecified; I10 Essential (primary) hypertension; F17.200 Nicotine dependence, unspecified, uncomplicated; Z98.51 Tubal ligation status
CPT/HCPCS: 36415; 74176; 80053; 81001; 83690; 85025; 87086; 96361; 96374; 96375; 99284; J1100; J1885; J2405; J7030

== ENCOUNTER 2021-03-04 13:26 | Emergency (ER) | payer SELFPAY ==
[2021-03-04] MEDS ORDERED: IPRATROPIUM/ALBUTEROL SULFATE 3 ML AMPUL.NEB IH ONE (14:18)
[2021-03-04] MEDS ORDERED: ACETAMINOPHEN 500 MG TAB PO ONE (14:18)
[2021-03-04] MEDS ORDERED: methylPREDNISolone Sod Succinate 125 MG/2 ML INJ IV ONE (14:18)
[2021-03-04] MEDS ORDERED: SODIUM CHLORIDE 0.9% 1000 ML 1,000 ML IV ONE (14:18)
--- NOTE | 2021-03-04 14:19 | Emergency Department Report ---
ED General Adult HPI - General Chief complaint: Urogenital-Female Stated complaint: fever Time Seen by Provider: 03/04/21 14:01 Source: patient Mode of arrival: Ambulatory Limitations: No Limitations - History of Present Illness Initial comments: 60-year-old female with past medical history of hypertension and tobacco use presents to the ER today with complaints of UTI/flulike symptoms. Patient states that symptoms started about 2 days ago. She reports chills, urinary frequency, generalized body ache, productive cough, rhinorrhea, nasal congestion, and wheezing. She denies any shortness of breath or chest tightness. She denies any abdominal pain, nausea, vomiting or diarrhea. She denies any dysuria or hematuria. She states that her mother was diagnosed with COVID-19 around . She did not get a COVID-19 test since she started with her symptoms. She did get 1 dose of the Pfizer vaccine back in January. She admits to marijuana use but no other illicit drug use and denies alcohol abuse. MD Complaint: Body aches, urinary frequency, chills, cough -: Gradual, days(s) (2) - Related Data Home Medications Medication Instructions Recorded Confirmed Last Taken Amlodipine Besylate [Norvasc] 10 mg PO DAILY 09/12/17 09/12/17 Unknown lisinopriL [Prinivil] 10 mg PO DAILY 09/12/17 09/12/17 Unknown Previous Rx's Medication Instructions Recorded Last Taken Type Baclofen 20 mg PO Q8H PRN #21 tablet 09/05/18 Unknown Rx Ibuprofen [Motrin] 800 mg PO Q8HR PRN #20 tablet 09/05/18 Unknown Rx traMADoL [Ultram] 50 mg PO Q6HR PRN #15 tablet 09/05/18 Unknown Rx Albuterol Mdi (or & Nicu Only) 2 puff IH QID PRN #8.5 gram 03/04/21 Unknown Rx [ProAir HFA Inhaler] Benzonatate [Tessalon Perles] 100 mg PO Q8HR #30 capsule 03/04/21 Unknown Rx predniSONE [Deltasone] 50 mg PO QDAY #5 tab 03/04/21 Unknown Rx Allergies Allergy/AdvReac Type Severity Reaction Status Date / Time No Known Allergies Allergy Verified 03/04/21 13:47 ED Review of Systems ROS: Stated complaint: fever Other details as noted in HPI Comment: All other systems reviewed and negative Constitutional: chills Respiratory: cough, shortness of breath, wheezing. denies: SOB with exertion, SOB at rest Cardiovascular: denies: chest pain, palpitations, dyspnea on exertion, edema, syncope, paroxysmal nocturnal dyspnea Gastrointestinal: denies: abdominal pain, nausea, vomiting, diarrhea, constipation, hematemesis, melena, hematochezia Genitourinary: denies: urgency, dysuria, frequency, hematuria, discharge, dyspareunia Musculoskeletal: myalgia Skin: denies: rash, lesions, change in color, change in hair/nails, pruritus Neurological: denies: headache, weakness, numbness, paresthesias, confusion, abnormal gait, vertigo Psychiatric: denies: anxiety, depression, auditory hallucinations, visual hallucinations, homicidal thoughts, suicidal thoughts Hematological/Lymphatic: denies: easy bleeding, easy bruising, swollen glands ED Past Medical Hx - Past Medical History Hx Hypertension: Yes - Surgical History Additional Surgical History: Tubal ligation - Social History Smoking Status: Current Every Day Smoker Substance Use Type: None - Medications Home Medications: Home Medications Medication Instructions Recorded Confirmed Last Taken Type Amlodipine Besylate [Norvasc] 10 mg PO DAILY 09/12/17 09/12/17 Unknown History lisinopriL [Prinivil] 10 mg PO DAILY 09/12/17 09/12/17 Unknown History Baclofen 20 mg PO Q8H PRN #21 tablet 09/05/18 Unknown Rx Ibuprofen [Motrin] 800 mg PO Q8HR PRN #20 tablet 09/05/18 Unknown Rx traMADoL [Ultram] 50 mg PO Q6HR PRN #15 tablet 09/05/18 Unknown Rx Albuterol Mdi (or & Nicu Only) 2 puff IH QID PRN #8.5 gram 03/04/21 Unknown Rx [ProAir HFA Inhaler] Benzonatate [Tessalon Perles] 100 mg PO Q8HR #30 capsule 03/04/21 Unknown Rx predniSONE [Deltasone] 50 mg PO QDAY #5 tab 03/04/21 Unknown Rx ED Physical Exam - General Limitations: No Limitations General appearance: alert, in no apparent distress - Head Head exam: Present: atraumatic, normocephalic, normal inspection - Eye Eye exam: Present: normal appearance, PERRL, EOMI Pupils: Present: normal accommodation - ENT ENT exam: Present: normal exam, mucous membranes moist - Neck Neck exam: Present: normal inspection, full ROM. Absent: meningismus - Respiratory Respiratory exam: Present: normal lung sounds bilaterally, wheezes. Absent: respiratory distress (diffuse expiratory wheezing ), rales, rhonchi, stridor - Cardiovascular Cardiovascular Exam: Present: regular rate, normal rhythm, normal heart sounds - GI/Abdominal GI/Abdominal exam: Present: soft. Absent: distended, tenderness, guarding, rebound - Neurological Exam Neurological exam: Present: alert, oriented X3, CN II-XII intact, normal gait - Psychiatric Psychiatric exam: Present: normal affect, normal mood - Skin Skin exam: Present: intact ED Course Vital Signs 03/04/21 03/04/21 03/04/21 13:46 15:41 16:30 Temperature 99.2 F Pulse Rate 59 L 56 L Pulse Rate [ 41 L Anterior Bilateral Throughout] Respiratory 16 16 Rate Respiratory 18 Rate [Anterior Bilateral Throughout] Blood Pressure 170/65 176/64 [Right] O2 Sat by Pulse 100 100 Oximetry ED Medical Decision Making - Lab Data Result diagrams: 03/04/21 14:47 03/04/21 14:47 - Radiology Data Radiology results: report reviewed Patient: LIANNA PAULSON MR#: [id number] : 1960 Acct:[id number] Age/Sex: 60 / F ADM Date: 03/04/21 Loc: ED Attending Dr: Ordering Physician: MAYLIN BRUNO Date of Service: 03/04/21 Procedure(s): XR chest routine 2V Accession Number(s): [id number] cc: MAYLIN BRUNO Fluoro Time In Minutes: CHEST 2 VIEWS INDICATION / CLINICAL INFORMATION: Cough/wheezing. COMPARISON: None available. FINDINGS: SUPPORT DEVICES: None. HEART / MEDIASTINUM: Mildly enlarged cardiac silhouette. LUNGS / PLEURA: No significant pulmonary or pleural abnormality. No pneumothorax. ADDITIONAL FINDINGS: No significant additional findings. IMPRESSION: Mildly enlarged cardiac silhouette without evidence of acute pulmonary findings. Signer Name: Munir Willard MD Signed: 03/04/2021 2:41 PM Workstation Name: [id number] Transcribed By: DANIELLE Dictated By: MUNIR WILLARD MD Electronically Authenticated By: MUNIR WILLARD MD Signed Date/Time: 03/04/21 144 DD/ 144 TD/TT: - Medical Decision Making 60-year-old female with past medical history of hypertension and tobacco use presents to the ER today with complaints of UTI/flulike symptoms. Patient states that symptoms started about 2 days ago. She reports chills, urinary frequency, generalized body ache, productive cough, rhinorrhea, nasal congest ion, and wheezing. She denies any shortness of breath or chest tightness. She denies any abdominal pain, nausea, vomiting or diarrhea. She denies any dysuria or hematuria. She states that her mother was diagnosed with COVID-19 around . She did not get a COVID-19 test since she started with her symptoms. She did get 1 dose of the Pfizer vaccine back in January. She admits to marijuana use but no other illicit drug use and denies alcohol abuse. 1644: Patient reports that she feels much better after IV fluids, nebulizer treatment and meds. Repeat chest exam shows a much improvement of her wheezing. She is not in any acute respiratory distress. She was observed ambulating from the bathroom back to her chair and had a normal gait and was not in any acute distress. Repeat vital signs are stable. She does not appear toxic and she does not appear ill appearing. Chest x-ray shows mild cardiomegaly but otherwise no acute abnormalities. Labs including rapid flu and UA unremarkable. Suspect patient symptoms related to a viral URI/viral bronchitis but patient was exposed to her mom who was diagnosed with Covid over the . Discussed all lab results, suspected diagnosis and treatment plan with patient and recommend outpatient COVID-19 test. Patient expressed understanding of all instructions and agree with plan. Patient stable at time of discharge. - Differential Diagnosis Pneumonia, flu, pyelonephritis, Covid Critical care attestation.: If time is entered above; I have spent that time in minutes in the direct care of this critically ill patient, excluding procedure time. ED Disposition Clinical Impression: URI (upper respiratory infection), Acute bronchitis, Suspected COVID-19 virus infection Disposition: HOME / SELF CARE / HOMELESS Is pt being admited?: No Does the pt Need Aspirin: No Condition: Stable Instructions: Upper Respiratory Infection, Adult, Acute Bronchitis, Adult, [id number], Acute Bronchitis (ED) Additional Instructions: I recommend that you get a Covid test at either a local pharmacy or urgent care, as this could also be the cause of your symptoms. In the meantime I do recommend that you take the prednisone, Tessalon Perles and use the albuterol as prescribed. You can take Tylenol and/or ibuprofen as as needed for pain. I recommend follow-up with your PCP this week. Return to the ER if your symptoms changes or worsens in any way. Prescriptions: predniSONE [Deltasone] 50 mg PO QDAY #5 tab Albuterol Mdi (or & Nicu Only) [ProAir HFA Inhaler] 2 puff IH QID PRN #8.5 gram PRN Reason: Shortness Of Breath Benzonatate [Tessalon Perles] 100 mg PO Q8HR #30 capsule Referrals: PRIMARY CARE, [Primary Care Provider] - 3-5 Days Forms: Work/School Release Form(ED) Time of Disposition: 16:38
[2021-03-04 14:42] LABS: Bilirubin,Urine NEG (Negative); Blood,Urine SM (Negative); Color,Urine Yellow (Yellow); Mucus,Urine FEW /HPF; Protein,Urine <15 mg/dL mg/dL (Negative); Urobilinogen,Urine < 2.0 mg/dL (<2.0)
--- NOTE | 2021-03-04 14:46 | XRay Report ---
CHEST 2 VIEWS INDICATION / CLINICAL INFORMATION: Cough/wheezing. COMPARISON: None available. FINDINGS: SUPPORT DEVICES: None. HEART / MEDIASTINUM: Mildly enlarged cardiac silhouette. LUNGS / PLEURA: No significant pulmonary or pleural abnormality. No pneumothorax. ADDITIONAL FINDINGS: No significant additional findings. IMPRESSION: Mildly enlarged cardiac silhouette without evidence of acute pulmonary findings. Signer Name: Munir Willard MD Signed: 03/04/2021 2:41 PM Workstation Name: [id number]
[2021-03-04 15:05] LABS: Basophils # (Auto) 0.1 K/mm3 (0.0-0.1); Basophils % (Auto) 1.1 % (0.0-1.8); Eosinophils # (Auto) 0.1 K/mm3 (0.0-0.4); Eosinophils % (Auto) 1.3 % (0.0-4.3); Hematocrit 43.6 % (30.3-42.9); Hemoglobin 13.7 gm/dl (10.1-14.3); Lymphocytes # (Auto) 1.3 K/mm3 (1.2-5.4); Lymphocytes % (Auto) 22.4 % (13.4-35.0); Mean Corpuscular HGB Conc 31 % (30-34); Mean Corpuscular Volume 76 fl (79-97); Monocytes # (Auto) 0.7 K/mm3 (0.0-0.8); Monocytes % (Auto) 12.2 % (0.0-7.3); Platelet Count 240 K/mm3 (140-440); Red Blood Count 5.74 M/mm3 (3.65-5.03); Red Cell Distribution Width 15.8 % (13.2-15.2)
[2021-03-04 15:23] LABS: Alanine Aminotransferase 13 units/L (7-56); Albumin 4.1 g/dL (3.9-5); BUN/Creatinine Ratio 11; Blood Urea Nitrogen 9 mg/dL (7-17); Calcium 9.4 mg/dL (8.4-10.2); Hemolysis Index 7
[2021-03-04 16:31] VITALS: BP 176/64
== END 2021-03-04 17:24 | disposition home or self-care (01) ==
LOC: ED 13:26
DX: J20.9 Acute bronchitis, unspecified (principal); Z20.822 Contact with and (suspected) exposure to COVID-19; J06.9 Acute upper respiratory infection, unspecified; F17.200 Nicotine dependence, unspecified, uncomplicated
CPT/HCPCS: 36415; 71046; 80053; 81001; 85025; 87400; 94644; 96374; 99284; J2930; J7030; Q0162

== ENCOUNTER 2021-06-26 08:37 | Emergency (ER) | payer SELFPAY ==
[2021-06-26] MEDS ORDERED: KETOROLAC 60 MG/2 ML INJ IM ONE (13:53)
[2021-06-26] MEDS ORDERED: DEXAMETHASONE 4 MG TAB PO ONE (13:53)
--- NOTE | 2021-06-26 14:51 | Vascular Lab Report ---
. DUPLEX DOPPLER LOWER EXTREMITY VEINS, RIGHT INDICATION: Thigh pain. TECHNIQUE: Duplex doppler imaging was performed through the veins of the right lower extremity using venous comp ression and other maneuvers. COMPARISON: No relevant prior imaging study available. FINDINGS: Right Common femoral vein: Negative. Right Superficial femoral vein: Negative. Right Popliteal vein: Negative. Right Calf veins: Negative. Additional findings: None.. IMPRESSION: 1. No sonographic evidence for DVT in the right lower extremity. Signer Name: Boo Lino MD Signed: 06/26/2021 2:46 PM Workstation Name: [id number]
--- NOTE | 2021-06-26 15:29 | XRay Report ---
RIGHT HIP 2 VIEWS 1420 INDICATION: Severe thigh pain COMPARISON: None available. FINDINGS: No fractures or dislocations are seen. Mild lower lumbar degenerative changes are noted. Mi ld right hip degenerative changes are seen. No focal bony lesions are noted. Multiple calcifications in the pelvis probably are vascular. RIGHT FEMUR 2 VIEWS 1422 INDICATION: Severe thigh pain COMPARISON: None available. FINDINGS: No fractures or dislocation are seen. Mild right hip degenerative changes are noted. Modera te knee degenerative changes are seen, particularly medially. No focal bony lesions are noted. Signer Name: Eduardo Reno MD Signed: 06/26/2021 3:24 PM Workstation Name: [id number]
--- NOTE | 2021-06-26 16:18 | Emergency Department Report ---
ED Extremity Problem HPI - General Chief complaint: Extremity Problem,Nontraumatic Stated complaint: RT LEG PAIN Time Seen by Provider: 06/26/21 16:06 Source: patient Mode of arrival: Ambulatory Limitations: No Limitations - History of Present Illness Initial comments: Patient is a 60-year-old female presents emergency room complaints of right leg pain for approximately 3 weeks. Patient states that she started working out in the gym approximately a month ago and states that she does swimming and stationary bikes. She denies any fall or injury. She states that the pain is from her right knee and radiates up to her right lower back. She denies any leg swelling, calf pain, numbness, weakness, skin changes, chest pain, shortness of breath. No allergies to medications. Severity scale (0 -10): 8 - Related Data Home Medications Medication Instructions Recorded Confirmed Last Taken Amlodipine Besylate [Norvasc] 10 mg PO DAILY 09/12/17 09/12/17 Unknown lisinopriL [Prinivil] 10 mg PO DAILY 09/12/17 09/12/17 Unknown Previous Rx's Medication Instructions Recorded Last Taken Type Baclofen 20 mg PO Q8H PRN #21 tablet 09/05/18 Unknown Rx Ibuprofen [Motrin] 800 mg PO Q8HR PRN #20 tablet 09/05/18 Unknown Rx traMADoL [Ultram] 50 mg PO Q6HR PRN #15 tablet 09/05/18 Unknown Rx Albuterol Mdi (or & Nicu Only) 2 puff IH QID PRN #8.5 gram 03/04/21 Unknown Rx [ProAir HFA Inhaler] Benzonatate [Tessalon Perles] 100 mg PO Q8HR #30 capsule 03/04/21 Unknown Rx predniSONE [Deltasone] 50 mg PO QDAY #5 tab 03/04/21 Unknown Rx Meloxicam [Mobic] 7.5 mg PO QDAY #14 tablet 06/26/21 Unknown Rx Menthol/Camphor [[place] 1 applicatio TP BID #18 g 06/26/21 Unknown Rx Ointment] methOCARBAMOL [Robaxin TAB] 500 mg PO BID PRN #20 tab 06/26/21 Unknown Rx Allergies Allergy/AdvReac Type Severity Reaction Status Date / Time No Known Allergies Allergy Verified 03/04/21 13:47 ED Review of Systems ROS: Stated complaint: RT LEG PAIN Other details as noted in HPI Comment: All other systems reviewed and negative ED Past Medical Hx - Past Medical History Hx Hypertension: Yes - Surgical History Additional Surgical History: Tubal ligation - Social History Smoking Status: Current Every Day Smoker Substance Use Type: None - Medications Home Medications: Home Medications Medication Instructions Recorded Confirmed Last Taken Type Amlodipine Besylate [Norvasc] 10 mg PO DAILY 09/12/17 09/12/17 Unknown History lisinopriL [Prinivil] 10 mg PO DAILY 09/12/17 09/12/17 Unknown History Baclofen 20 mg PO Q8H PRN #21 tablet 09/05/18 Unknown Rx Ibuprofen [Motrin] 800 mg PO Q8HR PRN #20 tablet 09/05/18 Unknown Rx traMADoL [Ultram] 50 mg PO Q6HR PRN #15 tablet 09/05/18 Unknown Rx Albuterol Mdi (or & Nicu Only) 2 puff IH QID PRN #8.5 gram 03/04/21 Unknown Rx [ProAir HFA Inhaler] Benzonatate [Tessalon Perles] 100 mg PO Q8HR #30 capsule 03/04/21 Unknown Rx predniSONE [Deltasone] 50 mg PO QDAY #5 tab 03/04/21 Unknown Rx Meloxicam [Mobic] 7.5 mg PO QDAY #14 tablet 06/26/21 Unknown Rx Menthol/Camphor [[place] 1 applicatio TP BID #18 g 06/26/21 Unknown Rx Ointment] methOCARBAMOL [Robaxin TAB] 500 mg PO BID PRN #20 tab 06/26/21 Unknown Rx ED Physical Exam - General Limitations: No Limitations General appearance: alert, in no apparent distress - Head Head exam: Present: atraumatic, normocephalic - Eye Eye exam: Present: normal appearance - ENT ENT exam: Present: mucous membranes moist - Respiratory Respiratory exam: Present: normal lung sounds bilaterally. Absent: respiratory distress, wheezes, rales, rhonchi, stridor, chest wall tenderness, accessory muscle use, decreased breath sounds, prolonged expiratory - Cardiovascular Cardiovascular Exam: Present: regular rate, normal rhythm, normal heart sounds. Absent: systolic murmur, diastolic murmur, rubs, gallop - Extremities Exam Extremities exam: Present: other (no bony ttp of the RLE, FROM of the RLE, no pedal edema, no skin changes, no calf ttp, neurovasculalry intact) - Back Exam Back exam: Present: normal inspection, full ROM. Absent: tenderness, muscle spasm, paraspinal tenderness, vertebral tenderness - Neurological Exam Neurological exam: Present: alert, oriented X3, normal gait. Absent: motor sensory deficit - Psychiatric Psychiatric exam: Present: normal affect, normal mood - Skin Skin exam: Present: warm, dry, intact ED Course Vital Signs 06/26/21 06/26/21 09:32 16:48 Temperature 97.6 F Pulse Rate 62 80 Respiratory 18 16 Rate Blood Pressure 132/67 132/76 [Right] O2 Sat by Pulse 98 99 Oximetry ED Medical Decision Making - Radiology Data Radiology results: report reviewed DUPLEX DOPPLER LOWER EXTREMITY VEINS, RIGHT INDICATION: Thigh pain. TECHNIQUE: Duplex doppler imaging was performed through the veins of the right lower extremity using venous compression and other maneuvers. COMPARISON: No relevant prior imaging study available. FINDINGS: Right Common femoral vein: Negative. Right Superficial femoral vein: Negative. Right Popliteal vein: Negative. Right Calf veins: Negative. Additional findings: None.. IMPRESSION: 1. No sonographic evidence for DVT in the right lower extremity. Signer Name: Boo Lino MD Signed: 06/26/2021 1:46 PM Workstation Name: [id number] RIGHT HIP 2 VIEWS 1420 INDICATION: Severe thigh pain COMPARISON: None available. FINDINGS: No fractures or dislocations are seen. Mild lower lumbar degenerative changes are noted. Mild right hip degenerative changes are seen. No focal bony lesions are noted. Multiple calcifications in the pelvis probably are vascular. RIGHT FEMUR 2 VIEWS 1422 INDICATION: Severe thigh pain COMPARISON: None available. FINDINGS: No fractures or dislocation are seen. Mild right hip degenerative changes are noted. Moderate knee degenerative changes are seen, particularly medially. No focal bony lesions are noted. Signer Name: Eduardo Reno MD Signed: 06/26/2021 2:24 PM Workstation Name: [id number] - Medical Decision Making Patient is a 60-year-old female presents emergency room complaints of right leg pain for approximately 3 weeks. Patient states that she started working out in the gym approximately a month ago and states that she does swimming and stationary bikes. She denies any fall or injury. She states that the pain is from her right knee and radiates up to her right lower back. She denies any leg swelling, calf pain, numbness, weakness, skin changes, chest pain, shortness of breath. No allergies to medications. Vitals are normal. On exam:no bony ttp of the RLE, FROM of the RLE, no pedal edema, no skin changes, no calf ttp, neurovasculalry intact. Imaging ordered prior to my examination. Doppler ultrasound 1. No sonographic evidence for DVT in the right lower extremity. X- ray right hip No fractures or dislocations are seen. Mild lower lumbar degenerative changes are noted. Mild right hip degenerative changes are seen. No focal bony lesions are noted. Multiple calcifications in the pelvis probably are vascular. X-ray right femur FINDINGS: No fractures or dislocation are seen. Mild right hip degenerative changes are noted. Moderate knee degenerative changes are seen, particularly medially. No focal bony lesions are noted. Patient given medications prior to my examination with some improvement of her symptoms. Patient has no erythema, no skin changes, no signs of septic joint or cellulitis. Patient has 2+ distal pulses, do not suspect acute arterial occlusion. Discussed all findings with patient. Patient given prescription for medication. Discussed the importance of outpatient follow-up. Discussed return precautions and advised return to emergency room for any new or worsening symptoms. Critical care attestation.: If time is entered above; I have spent that time in minutes in the direct care of this critically ill patient, excluding procedure time. ED Disposition Clinical Impression: Right leg pain Disposition: 01 HOME / SELF CARE / HOMELESS Is pt being admited?: No Does the pt Need Aspirin: No Condition: Stable Additional Instructions: Please use medication as prescribed as needed. May use ice pack or soak in Epson salt. Follow-up with your primary care doctor. Follow-up with orthopedic doctor. Return to emergency room for any new or worsening symptoms. Do not use ice while using [place] balm. Prescriptions: Meloxicam [Mobic] 7.5 mg PO QDAY #14 tablet methOCARBAMOL [Robaxin TAB] 500 mg PO BID PRN #20 tab PRN Reason: muscle spasm/pain Menthol/Camphor [[place] Ointment] 1 applicatio TP BID #18 g Referrals: PRIMARY MD GRADY [Primary Care Provider] - 3-5 Days GINNA ALMAZAN MD [Staff Physician] - 3-5 Days Time of Disposition: 16:20 Print Language: SERBIAN
[2021-06-26 16:49] VITALS: BP 132/76
== END 2021-06-26 16:49 | disposition home or self-care (01) ==
LOC: ED 08:37
DX: M79.604 Pain in right leg (principal); I10 Essential (primary) hypertension; Z98.51 Tubal ligation status; F17.200 Nicotine dependence, unspecified, uncomplicated
CPT/HCPCS: 73502; 73552; 93971; 96372; 99284; J1885; J8540